=== PATIENT | female | born 1970 | race Caucasian/White ===

== ENCOUNTER 2017-08-28 12:35 | Emergency (ER) | payer OTHER ==
[~2017-08-28] VITALS: Ht 165.1 cm; Wt 88.0 kg
[~2017-08-28 12:35] MED LIST: KEPPRA1000 MG; KLONOPIN0.25 MG/TA; NEURONTIN300 MG; PROZAC40 MG; VASOTEC10 MG; VISTARIL25 MG
== END 2017-08-28 22:04 | disposition home or self-care (01) ==
LOC: ER 12:35
DX: K59.00 Constipation, unspecified (principal); R10.84 Generalized abdominal pain